=== PATIENT | female | born 1940 | race Caucasian/White ===

== ENCOUNTER 2019-04-19 12:43 | Day surgery (SDC) | payer MEDICARE, BC ==
[~2019-04-19 12:43] MED LIST: Acetaminophen TAB* 325 MG PO PRN
[2019-04-19] MEDS ORDERED: Cyclopentolate 1% OPTH.SOL* 2 ML BTL ONE (13:30)
[2019-04-19] MEDS ORDERED: Tetracaine 0.5% OPTH.SOL 4 ML* 1 DROP BTL ONE (13:30)
[2019-04-19] MEDS ORDERED: Ketorolac 0.5% OPHTH (NF) 0.5 % 5 ML BTL ONE (13:30)
[2019-04-19] MEDS ORDERED: acetaZOLAMIDE TAB* 250 MG ONE (13:30)
[2019-04-19] MEDS ORDERED: Neomycin/Polymy/Dex OPHTH.OIN* 3.5 GM ONE (13:30)
[2019-04-19] MEDS ORDERED: Lidocaine 1% MPF ** 5 ML VIAL ONE (13:30)
[2019-04-19] MEDS ORDERED: Phenylephrine OPHTH SOL 2.5%* 2 ML ONE (13:30)
[2019-04-19] MEDS ORDERED: Povidone Iodine 5% OPTH* 30 ML BTL ONE (13:30)
[2019-04-19] MEDS ORDERED: Tropicamide 1% OPTH.SOL* BTL ONE (13:30)
[2019-04-19] MEDS ORDERED: fentaNYL* 50 MCG/ML 2 ML VIAL (100 MCG VIAL) ONE (13:35)
[2019-04-19] MEDS ORDERED: Midazolam* 1 MG/ML 5 ML VIAL (5 MG) ONE (13:35)
[2019-04-19 15:57] VITALS: BP 151/66
--- NOTE | 2019-04-19 19:55 | OP ---
DATE OF OPERATION: 04/19/19 - [facility] DATE OF : 42 SURGEON: Louis Perkins MD ANESTHESIA: Monitored anesthesia care. PREOPERATIVE DIAGNOSIS: Cataract, right eye. POSTOPERATIVE DIAGNOSIS: Cataract, right eye. OPERATIVE PROCEDURE: Extracapsular cataract extraction of the right eye with intraocular lens implant. IMPLANT: SN60WF 20.5 Diopter lens to the right eye. COMPLICATIONS: None. DESCRIPTION OF PROCEDURE: The patient was given phenylephrine 2.5 % and cyclopentolate 1% eye drops to the operative eye in the preoperative area. The patient was taken to the operating room where a time-out was taken to identify the correct patient, site, and side of surgery. The patient's right eye was prepped and draped in the usual sterile fashion with 5% Betadine. A second time- out was taken to verify the correct patient, side, and site of surgery, as well as the correct lens implant. A lid speculum was placed to the right eye. A 1mm paracentesis blade was used to make a clear corneal incision. Preservative-free 1% lidocaine was injected into the anterior chamber. DisCoVisc was then injected into the anterior chamber. A 2.75 mm keratome blade was used to make a triplanar incision. A cystotome initiated a capsulorrhexis, which was completed with Utrata forceps in a continuous and curvilinear manner. Hydrodissection of the lens was performed with BSS on a cannula. The lens could be spun in a capsular bag. The phacoemulsification handpiece was used with a divide-and- conquer technique to remove the nucleus. The I/A handpiece then removed the residual cortical lens material. DisCoVisc was injected to inflate the capsular bag. The planned SN60WF 20.5 Diopter lens was injected into the capsular bag. The residual DisCoVisc was removed from the eye with the I/A handpiece. The corneal incisions were hydrated and no leaks occurred at physiologic pressure around 20 mmHg per palpation. The lid speculum was removed and drapes were removed. Maxitrol ointment was placed to the surface of the operative eye. An adhesive patch and shield was then placed on the operative eye. The patient was taken to the postoperative area in stable condition. [id number]/[facility] #: [id number] [facility]
== END 2019-04-19 15:53 | disposition home or self-care (01) ==
LOC: OREAST 12:43
PROVIDERS: ATTEND Student in an Organized Health Care Education/Training Program
DX: H25.11 Age-related nuclear cataract, right eye (principal); J45.909 Unspecified asthma, uncomplicated; I10 Essential (primary) hypertension; E78.00 Pure hypercholesterolemia, unspecified; R01.1 Cardiac murmur, unspecified; E03.9 Hypothyroidism, unspecified
CPT/HCPCS: A9270-GY; J2250; J3010; V2632

== ENCOUNTER 2019-04-26 08:14 | Day surgery (SDC) | payer MEDICARE, BC ==
[2019-04-26] MEDS ORDERED: Cyclopentolate 1% OPTH.SOL* 2 ML BTL ONE (09:31)
[2019-04-26] MEDS ORDERED: Lidocaine 1% MPF ** 5 ML VIAL ONE (09:31)
[2019-04-26] MEDS ORDERED: Phenylephrine OPHTH SOL 2.5%* 2 ML ONE (09:31)
[2019-04-26] MEDS ORDERED: Povidone Iodine 5% OPTH* 30 ML BTL ONE (09:31)
[2019-04-26] MEDS ORDERED: acetaZOLAMIDE TAB* 250 MG ONE (09:31)
[2019-04-26] MEDS ORDERED: Neomycin/Polymy/Dex OPHTH.OIN* 3.5 GM ONE (09:32)
[2019-04-26] MEDS ORDERED: Tropicamide 1% OPTH.SOL* BTL ONE (09:32)
[2019-04-26] MEDS ORDERED: Ketorolac 0.5% OPHTH (NF) 0.5 % 5 ML BTL ONE (09:32)
[2019-04-26] MEDS ORDERED: Tetracaine 0.5% OPTH.SOL 4 ML* 1 DROP BTL ONE (09:32)
[2019-04-26] MEDS ORDERED: Midazolam* 1 MG/ML 2 ML VIAL (2 MG) ONE ×2 (09:41→09:45)
[2019-04-26 10:52] VITALS: BP 126/95
--- NOTE | 2019-04-26 11:14 | OP ---
DATE OF OPERATION: 04/26/19 - [facility] DATE OF : 42 SURGEON: Louis Perkins MD ANESTHESIA: Monitored anesthesia care. PREOPERATIVE DIAGNOSIS: Cataract, left eye. POSTOPERATIVE DIAGNOSIS: Cataract, left eye. OPERATIVE PROCEDURE: Extracapsular cataract extraction of the left eye with intraocular lens implant. IMPLANT: SN60WF 20.5 Diopter lens to the left eye. COMPLICATIONS: None. DESCRIPTION OF PROCEDURE: The patient was given phenylephrine 2.5 % and cyclopentolate 1% eye drops to the operative eye in the preoperative area. The patient was taken to the operating room where a time-out was taken to identify the correct patient, site, and side of surgery. The patient's left eye was prepped and draped in the usual sterile fashion with 5% Betadine. A second time- out was taken to verify the correct patient, side, and site of surgery, as well as the correct lens implant. A lid speculum was placed to the left eye. A 1mm paracentesis blade was used to make a clear corneal incision. Preservative-free 1% lidocaine was injected into the anterior chamber. DisCoVisc was then injected into the anterior chamber. A 2.75 mm keratome blade was used to make a triplanar incision. A cystotome initiated a capsulorrhexis, which was completed with Utrata forceps in a continuous and curvilinear manner. Hydrodissection of the lens was performed with BSS on a cannula. The lens could be spun in a capsular bag. The phacoemulsification handpiece was used with a divide-and- conquer technique to remove the nucleus. The I/A handpiece then removed the residual cortical lens material. DisCoVisc was injected to inflate the capsular bag. The planned SN60WF 20.5 diopter lens was injected into the capsular bag. The residual DisCoVisc was removed from the eye with the I/A handpiece. The corneal incisions were hydrated and no leaks occurred at physiologic pressure around 20 mmHg per palpation. The lid speculum was removed and drapes were removed. Maxitrol ointment was placed to the surface of the operative eye. An adhesive patch and shield was then placed on the operative eye. The patient was taken to the postoperative area in stable condition. [id number]/[facility] #: [id number] [facility]
== END 2019-04-26 10:27 | disposition home or self-care (01) ==
LOC: OREAST 08:14
PROVIDERS: ATTEND Student in an Organized Health Care Education/Training Program
DX: H25.12 Age-related nuclear cataract, left eye (principal); J45.909 Unspecified asthma, uncomplicated; E03.9 Hypothyroidism, unspecified; I10 Essential (primary) hypertension; E78.00 Pure hypercholesterolemia, unspecified; K21.9 Gastro-esophageal reflux disease without esophagitis; M19.90 Unspecified osteoarthritis, unspecified site
CPT/HCPCS: A9270-GY; J2250; V2632

== ENCOUNTER 2020-09-18 14:34 | Inpatient (IN) ==
[2020-09-18 16:47] LABS: ABS Eosinophils 0.3 10^3/ul (0-0.6); ABS Monocytes 0.5 10^3/ul (0-0.8); ABS Neutrophils 8.2 10^3/ul (1.5-7.7); Eosinophil % 2.7 %; Hematocrit 34 % (35-47); Hemoglobin 11.3 g/dL (12.0-16.0); Lymphocyte % 9.5 %; Mean Corpuscular HGB Conc 34 g/dL (31-36); Mean Corpuscular Hemoglobin 32 pg (27-31); Mean Corpuscular Volume 94 fL (80-97); Nucleated Red Blood Cells % 0.1; Platelet Count 403 10^3/uL (150-450); Red Blood Count 3.59 10^6 /uL (3.70-4.87); Red Cell Distribution Width 17 % (10-15)
[2020-09-18 16:55] LABS: Troponin I 0.01 ng/mL (<0.03)
[2020-09-18 17:00] LABS: Activated Partial Thrombo Time 28.6 seconds (26.0-38.0); INR 1.47 (0.82-1.09)
[2020-09-18 17:10] LABS: ALT 22 U/L (7-52); AST 24 U/L (13-39); Albumin 3.6 g/dL (3.2-5.2); Albumin/Globulin Ratio 0.8 (1-3); Alkaline Phosphatase 84 U/L (34-104); Anion Gap 14 mmol/L (2-11); Blood Urea Nitrogen 43 mg/dL (6-24); CO2 Carbon Dioxide 17 mmol/L (22-32); Calcium 9.2 mg/dL (8.6-10.3); Chloride 101 mmol/L (101-111); EGFR African American 34.7 (>60); EGFR Non-African American 28.7 (>60); Globulin 4.3 g/dL (2-4); Glucose 82 mg/dL (70-100); Potassium 4.9 mmol/L (3.5-5.0); Sodium 132 mmol/L (135-145); Total Protein 7.9 g/dL (6.4-8.9)
[2020-09-18 17:15] LABS: Magnesium 0.9 mg/dL (1.9-2.7)
[2020-09-18] MEDS ORDERED: Magnesium Sulf 4 GM/100 ML IV 4,000 MG/100 ML BAG IVPB ONE (17:16)
[2020-09-18 17:39] LABS: % Iron Saturation 12 % (15-55); Iron 34 ug/dL (50-212); Total Iron Binding Capacity 277 mcg/dL (250-450); Transferrin 198 mg/dL (203-362); Unsaturated Iron Binding < 262 ug/dL
[2020-09-18 17:49] LABS: Ferritin 165.6 ng/mL (11-307)
[2020-09-18 18:39] LABS: Erythrocyte Sed Rate 64 mm/Hr (0-29)
[2020-09-18] MEDS: Mometasone/Formoter 100/5 MDI INH SCH (19:53)
[2020-09-19] MEDS ORDERED: Lactated Ringers 1000 ml BAG 1,000 ML IV SCH
[2020-09-19] MEDS ORDERED: Enoxaparin 40 MG/0.4 ML SYR SUBCUT SCH (06:00)
[2020-09-19 07:44] LABS: Urine Appearance Clear; Urine Bilirubin Negative (Negative); Urine Blood Negative (Negative); Urine Color Yellow; Urine Glucose Negative (Negative); Urine Ketones Negative (Negative); Urine Nitrite Negative (Negative); Urine Protein Negative (Negative); Urine Specific Gravity 1.013 (1.010-1.030); Urine Urobilinogen Negative (Negative)
[2020-09-19] MEDS: Multivitamins/Minerals TAB PO SCH ×2 (08:10→09:57)
[2020-09-19] MEDS ORDERED: Lidocaine 1% VIAL 10 MG/ML VIAL ONE (08:47)
[2020-09-19] MEDS ORDERED: Flumazenil 0.5 mg/5 ml 0.1 MG/ML 5 ml VIAL ONE (09:02)
[2020-09-19] MEDS ORDERED: Naloxone 0.4 mg VIAL 0.4 mg/ml 1 ml VIAL ONE (09:02)
[2020-09-19] MEDS ORDERED: fentaNYL 100 mcg/2 ml 50 MCG/ML VIAL ONE (09:02)
[2020-09-19] MEDS ORDERED: Midazolam 5 mg/5 ml VIAL 1 mg/ml 5 ml VIAL (5 mg) ONE (09:02)
[2020-09-19 09:07] LABS: ABS Eosinophils 0.5 10^3/ul (0-0.6); ABS Lymphocytes 0.8 10^3/ul (1.0-4.8); ABS Neutrophils 7.1 10^3/ul (1.5-7.7); Corrected Retic Count 1.4 % (0.5-1.5); Hematocrit 29 % (35-47); Hematocrit for Retic CNT 29 % (35-47); Hemoglobin 9.7 g/dL (12.0-16.0); Immature Retic Fraction 0.61; Lymphocyte % 8.5 %; Mean Corpuscular HGB Conc 33 g/dL (31-36); Mean Corpuscular Hemoglobin 31 pg (27-31); Mean Corpuscular Volume 93 fL (80-97); Mean Platelet Volume 7.4 fL (7.4-10.4); Platelet Count 366 10^3/uL (150-450); RBC Retic Count 3.17 10^6/uL (3.70-4.87); Red Blood Count 3.17 10^6 /uL (3.70-4.87); Red Cell Distribution Width 17 % (10-15); White Blood Count 9.3 10^3/uL (3.5-10.8)
[2020-09-19 09:27] LABS: Calcium 8.6 mg/dL (8.6-10.3); EGFR African American 43.6 (>60); EGFR Non-African American 36.1 (>60); Magnesium 1.6 mg/dL (1.9-2.7); Potassium 4.3 mmol/L (3.5-5.0)
[2020-09-19 09:36] LABS: INR 1.34 (0.82-1.09)
[2020-09-19] MEDS: Mometasone/Formoter 100/5 MDI INH SCH ×2 (09:57→20:09)
[2020-09-19] MEDS: Enoxaparin 30 MG/0.3 ML SYR SUBCUT SCH (10:33)
[2020-09-19] MEDS ORDERED: Magnesium Sulfate 2 gm BAG 2 GM/50 ML BAG IVPB ONE (10:36)
[2020-09-19] MEDS ORDERED: NS 0.9% 1000 ml BAG 1,000 ML IV SCH (11:30)
[2020-09-19 11:50] LABS: Hepatitis B Surface Antigen Nonreactive (Nonreactive)
[2020-09-19 12:07] LABS: Hepatitis B Surface Ab Not Immune (Immune); Hepatitis C Antibody Negative (Negative)
[2020-09-20 07:14] LABS: BUN/Creatinine Ratio 25.7 (8-20); Calcium 8.2 mg/dL (8.6-10.3); EGFR African American 64.1 (>60); Magnesium 1.5 mg/dL (1.9-2.7)
[2020-09-20 07:17] LABS: ABS Eosinophils 0.3 10^3/ul (0-0.6); ABS Lymphocytes 0.8 10^3/ul (1.0-4.8); ABS Monocytes 1.2 10^3/ul (0-0.8); ABS Neutrophils 6.9 10^3/ul (1.5-7.7); Eosinophil % 3.3 %; Hematocrit 29 % (35-47); Hemoglobin 9.7 g/dL (12.0-16.0); Mean Corpuscular HGB Conc 34 g/dL (31-36); Mean Corpuscular Hemoglobin 31 pg (27-31); Mean Corpuscular Volume 93 fL (80-97); Mean Platelet Volume 7.3 fL (7.4-10.4); Platelet Count 320 10^3/uL (150-450); Red Blood Count 3.08 10^6 /uL (3.70-4.87); Red Cell Distribution Width 17 % (10-15); White Blood Count 9.2 10^3/uL (3.5-10.8)
[2020-09-20] MEDS ORDERED: Magnesium Sulfate 2 gm BAG 2 GM/50 ML BAG IVPB ONE (07:30)
[2020-09-20] MEDS: Mometasone/Formoter 100/5 MDI INH SCH (07:53)
[2020-09-20] MEDS ORDERED: Magnesium Sulfate IV 3 GM in NS 0.9% 100 ml BAG 100 ML IVPB ONE (09:22)
[2020-09-20] MEDS: Multivitamins/Minerals TAB PO SCH (09:32)
[2020-09-20] MEDS: Enoxaparin 30 MG/0.3 ML SYR SUBCUT SCH (10:47)
[2020-09-20 11:02] LABS: Ceruloplasmin 35.5 mg/dL
[2020-09-20 11:34] VITALS: BP 118/66
[2020-09-20 11:39] LABS: Lactate Dehydrogenase, BF 263 U/L
[2020-09-20 13:07] LABS: Urine Kappa Total Light Chain 5.68 mg/dL (<0.9000); Urine Kappa/Lambda Light Chain 4.54
[2020-09-20 13:17] LABS: DRVVT Screen Ratio 0.81 ratio (<1.20); LAC APTT 27 sec (25 - 37); LAC INR 1.3 (0.9-1.1); Prothrombin Time(LAC) 14.2 sec (9.4 - 12.5)
[2020-09-20 13:23] LABS: Fluid Type, Glucose PERICARDIAL; Glucose, BF 93 mg/dL
[2020-09-20 13:24] LABS: LAC PT Mix 1:1 12.3 sec (9.4 - 12.5); Thrombin Time (Bovine), P 23.4 sec
[2020-09-20 16:29] LABS: Cyclic Citrullinated Peptide 18.3 U
[2020-09-20 16:58] LABS: (sTfR) Soluble Trans Receptor 4.6 mg/L (1.8 - 4.6)
[2020-09-20 17:25] LABS: Albumin 2.6 g/dL (3.4-4.7); Albumin/Globulin Ratio 0.64; Beta 2 Glycoprotein IgG <9.4 U/mL; Gamma Globulin 2.1 g/dL (0.6-1.6); Total Protein(PEP) 6.8 g/dL (6.3 - 7.9)
[2020-09-20 18:05] LABS: Immunoglobulin A 583 mg/dL (61 - 356); Immunoglobulin G 2030 mg/dL (767 - 1590); Immunoglobulin M 129 mg/dL (37 - 286); JO-1 Antibody <0.2 U; RNP Antibody, IgG <0.2 U; Ribosomal Antibody <0.2 U; SS-A/Ro Antibody >8.0 U; SS-B/La Antibody <0.2 U; Sm (Smith) IgG Antibody <0.2 U
[2020-09-20 18:47] LABS: Kappa Free Light Chain 14.5 mg/dL; Lambda Free Light Chain, S 6.73 mg/dL; Phospholipid Ab IgG 38.6 GPL; Phospholipid Ab IgM, S 14.1 MPL
[2020-09-20 21:27] LABS: Mitochondria M2 Antibody <0.1 U
[2020-09-20 22:06] LABS: Complement C3 96 mg/dL (75 - 175)
[2020-09-21 12:42] LABS: Albumin/Globulin Ratio 0.84 %; Protein,Total, Random Urine 23 mg/dL
[2020-09-21 16:29] LABS: Alpha 1 Antitrypsin A1A 162 mg/dL (100 - 190)
[2020-09-22 15:33] LABS: Cytomegalovirus IgG Antibody Negative (Negative)
[2020-09-25 11:10] LABS: IgG Immunoblot Negative (Negative); IgM Immunoblot Negative (Negative)
== END 2020-09-20 15:50 | disposition home or self-care (01) ==
LOC: MEDTELE 14:34 → ED 14:34 → MEDTELE 19:16
PROVIDERS: ADMIT Pediatrics; ATTEND Pediatrics

== ENCOUNTER 2021-08-26 19:08 | Inpatient (IN) ==
[2021-08-27 02:07] LABS: ALT 88 U/L (7-52); AST 114 U/L (13-39); Albumin 3.7 g/dL (3.2-5.2); Albumin/Globulin Ratio 1.1 (1-3); Alkaline Phosphatase 98 U/L (35-149); Blood Urea Nitrogen 80 mg/dL (6-24); CO2 Carbon Dioxide 16 mmol/L (22-32); Calcium 9.1 mg/dL (8.6-10.3); Chloride 102 mmol/L (101-111); Globulin 3.4 g/dL (2-4); Glucose 91 mg/dL (70-100); Sodium 133 mmol/L (135-145); Total Protein 7.1 g/dL (6.4-8.9)
[2021-08-27 02:09] LABS: Anion Gap 15 mmol/L (2-11); Potassium 5.8 mmol/L (3.5-5.0)
[2021-08-27 02:13] LABS: Rapid COVID-19 Molecular Undetected (Undetected)
[2021-08-27 02:26] LABS: ABS Lymphocytes 1.6 10^3/ul (1.0-4.8); ABS Monocytes 1.5 10^3/ul (0-0.8); ABS Neutrophils 12.5 10^3/ul (1.5-7.7); ABS Nucleated RBC 0.6 10^3/ul; Eosinophil % 0.2 %; Hematocrit 27 % (35-47); Hemoglobin 8.7 g/dL (12.0-16.0); Lymphocyte % 10.4 %; Mean Corpuscular HGB Conc 33 g/dL (31-36); Mean Corpuscular Hemoglobin 35 pg (27-31); Mean Corpuscular Volume 107 fL (80-97); Mean Platelet Volume 8.1 fL (7.4-10.4); Nucleated Red Blood Cells % 3.5; Platelet Count 205 10^3/uL (150-450); Red Blood Count 2.49 10^6 /uL (3.70-4.87); Red Cell Distribution Width 17 % (10-15); White Blood Count 15.6 10^3/uL (3.5-10.8)
[2021-08-27 02:29] LABS: Troponin I 0.07 ng/mL (<0.03)
[2021-08-27 04:27] LABS: Corrected Retic Count 2.2 % (0.5-1.5); Hematocrit for Retic CNT 27 % (35-47); Immature Retic Fraction 0.72; RBC Retic Count 2.56 10^6/uL (3.70-4.87)
[2021-08-27 04:51] LABS: LDH 472 U/L (140-271)
[2021-08-27 05:11] LABS: Urine Appearance Cloudy; Urine Bilirubin Negative (Negative); Urine Blood Negative (Negative); Urine Color Yellow; Urine Glucose Negative (Negative); Urine Ketones Negative (Negative); Urine Nitrite Negative (Negative); Urine Protein 1+(30 mg/dL) (Negative); Urine Specific Gravity 1.013 (1.002-1.030); Urine Urobilinogen Negative (Negative)
[2021-08-27 05:15] LABS: Urine Bacteria Absent (Absent); Urine Red Blood Cell Trace(0-2/hpf) (Absent); Urine White Blood Cell 1+(6-10/hpf) (Absent)
[2021-08-27 05:25] LABS: Urine Creatinine Concentration 39.34 mg/dL
[2021-08-27] MEDS ORDERED: Patiromer POWDER 8.4 GM PAK PO SCH (06:00)
[2021-08-27 06:06] LABS: Alcohol, S < 13 mg/dL (<13)
[2021-08-27] MEDS: Heparin 5000 UNITS/ML 1 mL VIAL SUBCUT SCH ×3 (06:34→23:19)
[2021-08-27] MEDS ORDERED: Albuterol HFA INHALER 8 gm MDI INH PRN (06:58)
[2021-08-27 07:09] LABS: Magnesium 1.6 mg/dL (1.9-2.7)
[2021-08-27 07:31] LABS: Troponin I 0.07 ng/mL (<0.03)
[2021-08-27 08:03] LABS: Venous Bicarbonate HCO3 16.8 mmol/L (24-28)
[2021-08-27 08:06] LABS: Folate > 20.00 ng/mL (5.90-24.80)
[2021-08-27 08:07] LABS: Vitamin B12 777 pg/mL (180-914)
[2021-08-27 08:11] LABS: Activated Partial Thrombo Time 61.6 seconds (26.0-38.0); INR 1.45 (0.86-1.15)
[2021-08-27 09:32] LABS: Blood Urea Nitrogen 78 mg/dL (6-24); CO2 Carbon Dioxide 16 mmol/L (22-32); Calcium 8.8 mg/dL (8.6-10.3); Chloride 102 mmol/L (101-111); Glucose 77 mg/dL (70-100); Sodium 132 mmol/L (135-145)
[2021-08-27 09:34] LABS: Anion Gap 14 mmol/L (2-11); Potassium 5.3 mmol/L (3.5-5.0)
[2021-08-27] MEDS: Aspirin EC 81 mg TAB.EC (enteric coated) PO SCH (10:27)
[2021-08-27] MEDS ORDERED: NS 0.9% 1000 ml BAG 1,000 ML IV SCH ×2 (13:30→14:15)
[2021-08-27 16:01] LABS: UR Microalbumin (mg/L) 159.6 mg/L; Urine Creatinine 44.69 mg/dL; Urine Microalbumin/Creatinine 357.1 (<31)
[2021-08-27 18:27] LABS: Creatine Kinase 172 U/L (10-223)
[2021-08-27] MEDS: SODIUM ZIRCONIUM CYCLOSILICATE 10 GM PACKET PO SCH (20:07)
[2021-08-27] MEDS: Mometasone/Formoter 100/5 MDI INH SCH (20:36)
[2021-08-28] MEDS: Heparin 5000 UNITS/ML 1 mL VIAL SUBCUT SCH ×3 (05:55→20:16)
[2021-08-28 07:35] LABS: ABS Eosinophils 0.3 10^3/ul (0-0.6); ABS Lymphocytes 1.7 10^3/ul (1.0-4.8); ABS Monocytes 1.3 10^3/ul (0-0.8); ABS Neutrophils 9.2 10^3/ul (1.5-7.7); ABS Nucleated RBC 0.3 10^3/ul; ALT 111 U/L (7-52); AST 115 U/L (13-39); Albumin 3.3 g/dL (3.2-5.2); Alkaline Phosphatase 100 U/L (35-149); Anion Gap 13 mmol/L (2-11); Blood Urea Nitrogen 86 mg/dL (6-24); CO2 Carbon Dioxide 18 mmol/L (22-32); Calcium 8.6 mg/dL (8.6-10.3); Chloride 101 mmol/L (101-111); Eosinophil % 2.3 %; Globulin 3.3 g/dL (2-4); Glucose 75 mg/dL (70-100); Hematocrit 26 % (35-47); Hemoglobin 8.3 g/dL (12.0-16.0); Lymphocyte % 13.6 %; Magnesium 1.5 mg/dL (1.9-2.7); Mean Corpuscular HGB Conc 32 g/dL (31-36); Mean Corpuscular Hemoglobin 34 pg (27-31); Mean Corpuscular Volume 107 fL (80-97); Mean Platelet Volume 8.1 fL (7.4-10.4); Nucleated Red Blood Cells % 2.1; Platelet Count 198 10^3/uL (150-450); Potassium 4.7 mmol/L (3.5-5.0); Red Blood Count 2.41 10^6 /uL (3.70-4.87); Red Cell Distribution Width 17 % (10-15); Sodium 132 mmol/L (135-145); Total Protein 6.6 g/dL (6.4-8.9); White Blood Count 12.6 10^3/uL (3.5-10.8)
[2021-08-28] MEDS: Mometasone/Formoter 100/5 MDI INH SCH ×2 (08:34→19:28)
[2021-08-28 10:19] LABS: % Iron Saturation 8 % (15-55); Iron 29 ug/dL (50-212); Total Iron Binding Capacity 356 mcg/dL (250-450); Transferrin 254 mg/dL (203-362); Unsaturated Iron Binding < 341 ug/dL
[2021-08-28] MEDS: Aspirin EC 81 mg TAB.EC (enteric coated) PO SCH (10:29)
[2021-08-28] MEDS: SODIUM ZIRCONIUM CYCLOSILICATE 10 GM PACKET PO SCH ×3 (10:37→20:19)
[2021-08-28 10:38] LABS: Ferritin 126.6 ng/mL (11-307)
[2021-08-28 12:09] LABS: Complement C3 75 mg/dL (75 - 175)
[2021-08-29] MEDS ORDERED: Morphine 2 MG/ML SYRINGE IV ONE (03:51)
[2021-08-29 05:09] LABS: Hematocrit 24 % (35-47); Hemoglobin 7.9 g/dL (12.0-16.0); Mean Corpuscular HGB Conc 33 g/dL (31-36); Mean Corpuscular Hemoglobin 34 pg (27-31); Mean Corpuscular Volume 104 fL (80-97); Mean Platelet Volume 8.1 fL (7.4-10.4); Platelet Count 221 10^3/uL (150-450); Red Cell Distribution Width 16 % (10-15); White Blood Count 13.5 10^3/uL (3.5-10.8)
[2021-08-29 05:28] LABS: Albumin 2.9 g/dL (3.2-5.2); Calcium 8.2 mg/dL (8.6-10.3); Direct Bilirubin 0.4 mg/dL (0.03-0.18); Indirect Bilirubin 0.7 mg/dL (0.3-1.0); Magnesium 1.4 mg/dL (1.9-2.7); Potassium 3.6 mmol/L (3.5-5.0); Total Bilirubin 1.1 mg/dL (0.2-1.0); Total Protein 5.9 g/dL (6.4-8.9)
[2021-08-29] MEDS: Heparin 5000 UNITS/ML 1 mL VIAL SUBCUT SCH ×3 (06:01→20:20)
[2021-08-29] MEDS: Mometasone/Formoter 100/5 MDI INH SCH ×2 (07:45→20:09)
[2021-08-29] MEDS: Aspirin EC 81 mg TAB.EC (enteric coated) PO SCH (09:28)
[2021-08-29] MEDS: SODIUM ZIRCONIUM CYCLOSILICATE 10 GM PACKET PO SCH (11:27)
[2021-08-29] MEDS: Saline NASAL DROPS 0.65% BTL BOTH NARES PRN (20:19)
[2021-08-30 04:49] LABS: Hematocrit 24 % (35-47); Hemoglobin 7.8 g/dL (12.0-16.0); Mean Corpuscular HGB Conc 33 g/dL (31-36); Mean Corpuscular Hemoglobin 34 pg (27-31); Mean Corpuscular Volume 104 fL (80-97); Platelet Count 227 10^3/uL (150-450); Red Cell Distribution Width 17 % (10-15); White Blood Count 13.4 10^3/uL (3.5-10.8)
[2021-08-30 05:09] LABS: Albumin/Globulin Ratio 1.1 (1-3); Calcium 7.9 mg/dL (8.6-10.3); Direct Bilirubin 0.5 mg/dL (0.03-0.18); Globulin 2.8 g/dL (2-4); Indirect Bilirubin 0.7 mg/dL (0.3-1.0); Magnesium 1.4 mg/dL (1.9-2.7); Potassium 3.4 mmol/L (3.5-5.0); Total Bilirubin 1.2 mg/dL (0.2-1.0); Total Protein 5.8 g/dL (6.4-8.9)
[2021-08-30] MEDS: Heparin 5000 UNITS/ML 1 mL VIAL SUBCUT SCH ×3 (06:03→20:56)
[2021-08-30] MEDS: Mometasone/Formoter 100/5 MDI INH SCH ×2 (07:40→20:19)
[2021-08-30] MEDS: Aspirin EC 81 mg TAB.EC (enteric coated) PO SCH (08:27)
[2021-08-30] MEDS: Saline NASAL DROPS 0.65% BTL BOTH NARES PRN ×2 (08:34→20:28)
[2021-08-30 10:49] LABS: TSH Ultra Thyroid Stim Horm 9.46 mcIU/mL (0.34-5.60)
[2021-08-31 04:42] LABS: Hematocrit 30 % (35-47); Hemoglobin 10.1 g/dL (12.0-16.0); Mean Corpuscular HGB Conc 33 g/dL (31-36); Mean Corpuscular Hemoglobin 33 pg (27-31); Mean Corpuscular Volume 98 fL (80-97); Mean Platelet Volume 7.5 fL (7.4-10.4); Platelet Count 239 10^3/uL (150-450); Red Blood Count 3.09 10^6 /uL (3.70-4.87); Red Cell Distribution Width 20 % (10-15); White Blood Count 11.9 10^3/uL (3.5-10.8)
[2021-08-31 05:00] LABS: Albumin 2.9 g/dL (3.2-5.2); Albumin/Globulin Ratio 0.9 (1-3); Calcium 7.7 mg/dL (8.6-10.3); Globulin 3.2 g/dL (2-4); Magnesium 1.3 mg/dL (1.9-2.7); Potassium 2.8 mmol/L (3.5-5.0); Total Bilirubin 2.1 mg/dL (0.2-1.0); Total Protein 6.1 g/dL (6.4-8.9)
[2021-08-31] MEDS: Heparin 5000 UNITS/ML 1 mL VIAL SUBCUT SCH ×2 (05:01→13:34)
[2021-08-31] MEDS ORDERED: Potassium Chlor 20 meq TAB.ER PO ONE (06:37)
[2021-08-31] MEDS: Saline NASAL DROPS 0.65% BTL BOTH NARES PRN (07:13)
[2021-08-31] MEDS: Mometasone/Formoter 100/5 MDI INH SCH (07:15)
[2021-08-31] MEDS: Potassium Chlor 20 meq TAB.ER PO SCH ×3 (08:50→13:33)
[2021-08-31] MEDS: Aspirin EC 81 mg TAB.EC (enteric coated) PO SCH (08:50)
[2021-08-31 14:12] VITALS: BP 95/50
== END 2021-08-31 16:15 | disposition home or self-care (01) | DRG 683 ==
LOC: ED 19:08 → EDHOLD 08-27 04:57 → SUATTDRO 08-27 04:57 → EDHOLD 08-27 13:54 → MED 08-27 17:36
PROVIDERS: ADMIT Internal Medicine; ATTEND Internal Medicine

== ENCOUNTER 2021-09-14 13:05 | Inpatient (IN) ==
[2021-09-14] MEDS ORDERED: Cefepime 1 GM in Dextrose 1 GM/50 ML BAG IV ONE (13:30)
[2021-09-14] MEDS ORDERED: Vancomycin 1,000 MG in NS 0.9% 250 ml 250 ML IVPB ONE (13:30)
[2021-09-14] MEDS ORDERED: oxyCODONE/Acetamin 5/325 mg TAB PO ONE ×2 (14:12→20:07)
[2021-09-14 15:35] LABS: Hematocrit 33 % (35-47); Mean Corpuscular HGB Conc 33 g/dL (31-36); Mean Corpuscular Hemoglobin 33 pg (27-31); Mean Corpuscular Volume 99 fL (80-97); Mean Platelet Volume 7.9 fL (7.4-10.4); Platelet Count 356 10^3/uL (150-450); Red Blood Count 3.34 10^6 /uL (3.70-4.87); Red Cell Distribution Width 19 % (10-15); White Blood Count 19.4 10^3/uL (3.5-10.8)
[2021-09-14 15:55] LABS: INR 1.44 (0.86-1.15)
[2021-09-14 15:55] LABS: ALT 37 U/L (7-52); AST 32 U/L (13-39); Albumin 3.2 g/dL (3.2-5.2); Albumin/Globulin Ratio 0.9 (1-3); Alkaline Phosphatase 115 U/L (35-149); Anion Gap 14 mmol/L (2-11); Blood Urea Nitrogen 115 mg/dL (6-24); C Reactive Protein 166.39 mg/L (<8.01); CO2 Carbon Dioxide 23 mmol/L (22-32); Calcium 8.2 mg/dL (8.6-10.3); Chloride 93 mmol/L (101-111); Globulin 3.5 g/dL (2-4); Glucose 87 mg/dL (70-100); Potassium 3.7 mmol/L (3.5-5.0); Sodium 130 mmol/L (135-145); Total Protein 6.7 g/dL (6.4-8.9); eGFR CKD-EPI 25.7 (>60)
[2021-09-14 15:56] LABS: Activated Partial Thrombo Time 26.8 seconds (26.0-38.0)
[2021-09-14 16:14] LABS: ABS Basophils 0.1 10^3/ul (0-0.2); ABS Eosinophils 0.1 10^3/ul (0-0.6); ABS Lymphocytes 0.8 10^3/ul (1.0-4.8); ABS Monocytes 1.7 10^3/ul (0-0.8); ABS Neutrophils 16.7 10^3/ul (1.5-7.7); Eosinophil % 0.6 %; Lymphocyte % 4.3 %
[2021-09-14 16:14] LABS: Troponin I 0.07 ng/mL (<0.03)
[2021-09-14] MEDS ORDERED: Lactated Ringers 1000 ml BAG 1,000 ML IV ONE (16:14)
[2021-09-14] MEDS ORDERED: Ondansetron 4 mg VIAL 2 MG/ML 2 ml VIAL IV ONE ×2 (17:35→23:17)
[2021-09-14] MEDS ORDERED: Ondansetron 4 mg VIAL 2 MG/ML 2 ml VIAL ONE (17:36)
[2021-09-14 19:48] LABS: Rapid COVID-19 Molecular Undetected (Undetected)
[2021-09-14] MEDS ORDERED: Vancomycin 1,500 MG in NS 0.9% 250 ml 250 ML IVPB ONE (22:16)
[2021-09-14] MEDS ORDERED: Vancomycin per Pharmacy 1 EA NOTE FOLLOW UP PRN (23:21)
[2021-09-14] MEDS: Heparin 5000 UNITS/ML 1 mL VIAL SUBCUT SCH (23:39)
[2021-09-15 04:42] LABS: Hematocrit 38 % (35-47); Hemoglobin 12.4 g/dL (12.0-16.0); Mean Corpuscular HGB Conc 32 g/dL (31-36); Mean Corpuscular Hemoglobin 33 pg (27-31); Mean Corpuscular Volume 101 fL (80-97); Mean Platelet Volume 8.4 fL (7.4-10.4); Platelet Count 235 10^3/uL (150-450); Red Blood Count 3.78 10^6 /uL (3.70-4.87); Red Cell Distribution Width 18 % (10-15); White Blood Count 22.8 10^3/uL (3.5-10.8)
[2021-09-15 04:57] LABS: ABS Lymphocytes 0.3 10^3/ul (1.0-4.8); ABS Monocytes 0.9 10^3/ul (0-0.8); ABS Neutrophils 21.5 10^3/ul (1.5-7.7); Eosinophil % 0.2 %; Lymphocyte % 1.4 %
[2021-09-15 05:24] LABS: Troponin I 0.09 ng/mL (<0.03)
[2021-09-15] MEDS: Heparin 5000 UNITS/ML 1 mL VIAL SUBCUT SCH ×3 (06:22→21:38)
[2021-09-15] MEDS ORDERED: Acetaminophen IV 1 GM/100ML 100 ML IV ONE (07:47)
[2021-09-15 07:59] LABS: Urine Osmo 419 mOsm/kg (150-1150)
[2021-09-15 08:44] LABS: Troponin I 0.08 ng/mL (<0.03)
[2021-09-15] MEDS: Aspirin EC 81 mg TAB.EC (enteric coated) PO SCH (08:47)
[2021-09-15] MEDS ORDERED: EZETIMIBE PO SCH (09:00)
[2021-09-15] MEDS ORDERED: SIMVASTAT PO SCH (09:00)
[2021-09-15] MEDS: Mometasone/Formoter 100/5 MDI INH SCH ×2 (09:49→21:14)
[2021-09-15 11:50] LABS: CO2 Carbon Dioxide 18 mmol/L (22-32); Calcium 8.3 mg/dL (8.6-10.3); Chloride 98 mmol/L (101-111)
[2021-09-15 11:55] LABS: Anion Gap 19 mmol/L (2-11); Sodium 135 mmol/L (135-145)
[2021-09-15 11:56] LABS: Blood Urea Nitrogen 96 mg/dL (6-24); C Reactive Protein 216.71 mg/L (<8.01); Glucose 83 mg/dL (70-100); Potassium 3.5 mmol/L (3.5-5.0); eGFR CKD-EPI 30.1 (>60)
[2021-09-15] MEDS: Cefepime 1 GM in Dextrose 1 GM/50 ML BAG IV SCH (13:14)
[2021-09-15] MEDS ORDERED: Cefepime ADVAN 1 GM in NS 0.9% 50 ML 50 ML IVPB SCH (14:00)
[2021-09-15] MEDS ORDERED: Vancomycin Random Level NOTE FOLLOW UP ONE (15:00)
[2021-09-15] MEDS: Collagenase 250 units/gm OINT 1 tube TOPICAL SCH (15:44)
[2021-09-15] MEDS ORDERED: Lactated Ringers 1000 ml BAG 1,000 ML IV SCH (17:00)
[2021-09-15] MEDS ORDERED: Vancomycin 1000 MG in NS 0.9% 250 ML IVPB ONE (17:00)
[2021-09-16] MEDS: Heparin 5000 UNITS/ML 1 mL VIAL SUBCUT SCH ×3 (05:41→21:09)
[2021-09-16 06:33] LABS: ABS Basophils 0.1 10^3/ul (0-0.2); ABS Eosinophils 0.1 10^3/ul (0-0.6); ABS Lymphocytes 0.6 10^3/ul (1.0-4.8); ABS Monocytes 1.2 10^3/ul (0-0.8); ABS Neutrophils 17.6 10^3/ul (1.5-7.7); Eosinophil % 0.7 %; Hematocrit 29 % (35-47); Hemoglobin 9.6 g/dL (12.0-16.0); Lymphocyte % 3.2 %; Mean Corpuscular HGB Conc 33 g/dL (31-36); Mean Corpuscular Hemoglobin 33 pg (27-31); Mean Corpuscular Volume 99 fL (80-97); Mean Platelet Volume 8.3 fL (7.4-10.4); Platelet Count 265 10^3/uL (150-450); Red Blood Count 2.92 10^6 /uL (3.70-4.87); Red Cell Distribution Width 19 % (10-15); White Blood Count 19.6 10^3/uL (3.5-10.8)
[2021-09-16 06:52] LABS: Calcium 8.1 mg/dL (8.6-10.3); Potassium 3.7 mmol/L (3.5-5.0); eGFR CKD-EPI 22.6 (>60)
[2021-09-16 06:55] LABS: Magnesium 0.7 mg/dL (1.9-2.7)
[2021-09-16] MEDS ORDERED: Magnesium Sulf 4 GM/100 ML IV 4,000 MG/100 ML BAG IVPB ONE (07:15)
[2021-09-16] MEDS: Mometasone/Formoter 100/5 MDI INH SCH (07:54)
[2021-09-16] MEDS: Aspirin EC 81 mg TAB.EC (enteric coated) PO SCH (09:05)
[2021-09-16] MEDS: Collagenase 250 units/gm OINT 1 tube TOPICAL SCH (09:07)
[2021-09-16] MEDS ORDERED: Vancomycin Random Level NOTE FOLLOW UP ONE (12:00)
[2021-09-16] MEDS: Cefepime 1 GM in Dextrose 1 GM/50 ML BAG IV SCH (13:07)
[2021-09-16] MEDS ORDERED: NS 0.9% 1000 ml BAG 1,000 ML IV SCH (14:45)
[2021-09-16 15:31] LABS: Hematocrit 31 % (35-47); Hemoglobin 10.3 g/dL (12.0-16.0)
[2021-09-16] MEDS: Clindamycin 600 MG/D5W BAG 600 MG/50 ML BAG IV SCH ×2 (15:32→21:10)
[2021-09-17] MEDS ORDERED: Saline NASAL SPRAY 0.65% BTL BOTH NARES PRN (01:18)
[2021-09-17] MEDS: Mometasone/Formoter 100/5 MDI INH SCH ×3 (01:21→20:34)
[2021-09-17] MEDS: Clindamycin 600 MG/D5W BAG 600 MG/50 ML BAG IV SCH ×4 (02:38→20:41)
[2021-09-17 05:40] LABS: ABS Basophils 0.1 10^3/ul (0-0.2); ABS Eosinophils 0.1 10^3/ul (0-0.6); ABS Lymphocytes 0.7 10^3/ul (1.0-4.8); ABS Monocytes 1.1 10^3/ul (0-0.8); ABS Neutrophils 16.8 10^3/ul (1.5-7.7); Eosinophil % 0.5 %; Hematocrit 28 % (35-47); Hemoglobin 9.4 g/dL (12.0-16.0); Lymphocyte % 3.6 %; Mean Corpuscular HGB Conc 34 g/dL (31-36); Mean Corpuscular Hemoglobin 33 pg (27-31); Mean Corpuscular Volume 100 fL (80-97); Mean Platelet Volume 8.3 fL (7.4-10.4); Platelet Count 223 10^3/uL (150-450); Red Blood Count 2.81 10^6 /uL (3.70-4.87); Red Cell Distribution Width 18 % (10-15); White Blood Count 18.7 10^3/uL (3.5-10.8)
[2021-09-17 05:52] LABS: Potassium 3.6 mmol/L (3.5-5.0); eGFR CKD-EPI 18.8 (>60)
[2021-09-17] MEDS: Heparin 5000 UNITS/ML 1 mL VIAL SUBCUT SCH ×3 (05:52→20:42)
[2021-09-17] MEDS: Aspirin EC 81 mg TAB.EC (enteric coated) PO SCH (09:55)
[2021-09-17] MEDS: Collagenase 250 units/gm OINT 1 tube TOPICAL SCH (09:56)
[2021-09-17] MEDS: Cefepime 1 GM in Dextrose 1 GM/50 ML BAG IV SCH (12:50)
[2021-09-17] MEDS ORDERED: Bumetanide IV 0.25 MG/ML 10 ml VIAL (2.5 mg) SLOW PUSH ONE (13:46)
[2021-09-17] MEDS ORDERED: Potassium Chlor 20 meq TAB.ER PO ONE (14:07)
[2021-09-17 14:26] LABS: Urine Appearance Cloudy; Urine Bilirubin Negative (Negative); Urine Blood Negative (Negative); Urine Color Yellow; Urine Glucose Negative (Negative); Urine Ketones Negative (Negative); Urine Nitrite Negative (Negative); Urine Protein 1+(30 mg/dL) (Negative); Urine Specific Gravity 1.014 (1.002-1.030); Urine Urobilinogen Negative (Negative)
[2021-09-17 14:32] LABS: Urine Bacteria Absent (Absent); Urine Red Blood Cell Trace(0-2/hpf) (Absent); Urine Squamous Epithelial Cell Present (Absent); Urine White Blood Cell 2+(11-20/hpf) (Absent)
[2021-09-18] MEDS: Clindamycin 600 MG/D5W BAG 600 MG/50 ML BAG IV SCH ×4 (02:41→23:01)
[2021-09-18 05:12] LABS: Hematocrit 26 % (35-47); Hemoglobin 8.6 g/dL (12.0-16.0); Mean Corpuscular HGB Conc 33 g/dL (31-36); Mean Corpuscular Hemoglobin 33 pg (27-31); Mean Corpuscular Volume 99 fL (80-97); Mean Platelet Volume 8.3 fL (7.4-10.4); Platelet Count 197 10^3/uL (150-450); Red Blood Count 2.63 10^6 /uL (3.70-4.87); Red Cell Distribution Width 19 % (10-15); White Blood Count 23.4 10^3/uL (3.5-10.8)
[2021-09-18 05:24] LABS: INR 1.46 (0.86-1.15)
[2021-09-18 05:27] LABS: Potassium 4.1 mmol/L (3.5-5.0); eGFR CKD-EPI 17.9 (>60)
[2021-09-18] MEDS: Heparin 5000 UNITS/ML 1 mL VIAL SUBCUT SCH ×3 (05:32→21:04)
[2021-09-18 05:46] LABS: ABS Basophils 0.3 10^3/ul (0-0.2); ABS Lymphocytes 0.5 10^3/ul (1.0-4.8); ABS Neutrophils 21.6 10^3/ul (1.5-7.7); Eosinophil % 0.1 %
[2021-09-18] MEDS: Mometasone/Formoter 100/5 MDI INH SCH ×2 (07:37→19:44)
[2021-09-18 08:05] LABS: Magnesium 1.6 mg/dL (1.9-2.7)
[2021-09-18] MEDS: Collagenase 250 units/gm OINT 1 tube TOPICAL SCH (09:00)
[2021-09-18] MEDS ORDERED: Phytonadione Oral Solution 5 MG/25 ML UDC PO ONE (09:11)
[2021-09-18] MEDS ORDERED: Magnesium Sulfate 2 gm BAG 2 GM/50 ML BAG IVPB ONE (09:17)
[2021-09-18] MEDS ORDERED: Albumin Human 25% 12.5 GM/50 ML BTL IV ONE (09:21)
[2021-09-18] MEDS: Ure-Na 15 GM POWD.PACK PO SCH ×2 (10:42→23:12)
[2021-09-18] MEDS ORDERED: Bumetanide IV 10 MG in Premix IV 0 ML IV SCH (12:00)
[2021-09-18 12:34] LABS: UR Microalbumin (mg/L) 123.3 mg/L; Urine Creatinine 50.83 mg/dL; Urine Microalbumin/Creatinine 242.5 (<31)
[2021-09-18 13:38] LABS: Kappa Free Light Chain 11.4 mg/dL; Lambda Free Light Chain, S 9.95 mg/dL
[2021-09-18 14:09] LABS: Urine Osmo 300 mOsm/kg (150-1150)
[2021-09-18 14:14] LABS: Complement C3 112 mg/dL (75 - 175)
[2021-09-18 15:06] LABS: Folate > 20.00 ng/mL (5.90-24.80)
[2021-09-18 15:07] LABS: Iron < 20 ug/dL (50-212); LDH 340 U/L (140-271); Vitamin B12 833 pg/mL (180-914)
[2021-09-18] MEDS: Cefepime 1 GM in Dextrose 1 GM/50 ML BAG IV SCH (15:40)
[2021-09-18] MEDS: Bumetanide IV 10 MG in Premix IV 0 ML IV SCH ×3 (15:46→20:59)
[2021-09-18 16:05] LABS: Proteinase 3 <0.2 U
[2021-09-18 18:21] LABS: % Iron Saturation 8 % (15-55); Total Iron Binding Capacity 245 mcg/dL (250-450); Transferrin 175 mg/dL (203-362); Unsaturated Iron Binding < 230 ug/dL
[2021-09-19] MEDS: Bumetanide IV 10 MG in Premix IV 0 ML IV SCH ×4 (00:03→06:40)
[2021-09-19] MEDS: Clindamycin 600 MG/D5W BAG 600 MG/50 ML BAG IV SCH ×2 (03:08→10:33)
[2021-09-19 05:29] LABS: Hematocrit 28 % (35-47); Hemoglobin 8.9 g/dL (12.0-16.0); Mean Corpuscular HGB Conc 31 g/dL (31-36); Mean Corpuscular Hemoglobin 32 pg (27-31); Mean Corpuscular Volume 102 fL (80-97); Mean Platelet Volume 9.2 fL (7.4-10.4); Platelet Count 176 10^3/uL (150-450); Red Blood Count 2.76 10^6 /uL (3.70-4.87); Red Cell Distribution Width 19 % (10-15)
[2021-09-19] MEDS: Heparin 5000 UNITS/ML 1 mL VIAL SUBCUT SCH ×3 (05:30→22:05)
[2021-09-19 05:47] LABS: Calcium 8.5 mg/dL (8.6-10.3); Magnesium 2.2 mg/dL (1.9-2.7); Total Bilirubin 1.1 mg/dL (0.2-1.0)
[2021-09-19 05:53] LABS: Albumin/Globulin Ratio 0.9 (1-3); Globulin 3.3 g/dL (2-4); Total Protein 6.3 g/dL (6.4-8.9); eGFR CKD-EPI 17.6 (>60)
[2021-09-19] MEDS: Mometasone/Formoter 100/5 MDI INH SCH ×2 (07:30→19:28)
[2021-09-19 07:34] LABS: INR 1.45 (0.86-1.15)
[2021-09-19 08:08] LABS: Venous Bicarbonate HCO3 16.9 mmol/L (24-28)
[2021-09-19] MEDS ORDERED: Heparin - STEMI 5,000 UNITS/ML 1 ml VIAL IV ONE (09:25)
[2021-09-19 11:53] LABS: C-ANCA Negative (Negative); P-ANCA Negative (Negative)
[2021-09-19] MEDS: Azithromycin 500 mg/250 ml NS 500 MG/250 ML BAG IVPB SCH (12:09)
[2021-09-19] MEDS: fentaNYL 100 mcg/2 ml 50 MCG/ML VIAL IV SLOW PU PRN ×2 (13:20→17:47)
[2021-09-19] MEDS: Ure-Na 15 GM POWD.PACK PO SCH ×3 (13:30→22:52)
[2021-09-19] MEDS: Heparin 1,000 UNIT/ML 10 ml (10,000 UNITS) CATHLAB/DIALYSIS DIALYSIS ONE ×4 (14:15→17:05)
[2021-09-19 14:48] LABS: Calcium 7.4 mg/dL (8.6-10.3); Potassium 3.7 mmol/L (3.5-5.0)
[2021-09-19 14:53] LABS: eGFR CKD-EPI 18.9 (>60)
[2021-09-19 15:02] LABS: Albumin 2.4 g/dL (3.4-4.7); Albumin/Globulin Ratio 0.72; Gamma Globulin 1.3 g/dL (0.6-1.6); Total Protein(PEP) 5.8 g/dL (6.3 - 7.9)
[2021-09-19 16:26] LABS: Hepatitis B Surface Antigen Nonreactive (Nonreactive)
[2021-09-19] MEDS: Cefepime 1 GM in Dextrose 1 GM/50 ML BAG IV SCH (16:28)
[2021-09-19 16:44] LABS: Hepatitis B Surface Ab Not Immune (Immune)
[2021-09-19 18:30] LABS: Direct Bilirubin 0.5 mg/dL (0.03-0.18); Indirect Bilirubin 0.5 mg/dL (0.3-1.0)
[2021-09-19 19:17] LABS: JO-1 Antibody <0.2 U; RNP Antibody, IgG <0.2 U; SS-A/Ro Antibody >8.0 U; SS-B/La Antibody <0.2 U; Scleroderma Ab <0.2 U; Sm (Smith) IgG Antibody <0.2 U
[2021-09-19] MEDS ORDERED: Cefepime 1 GM in Dextrose 1 GM/50 ML BAG IV SCH (21:00)
[2021-09-19] MEDS: Collagenase 250 units/gm OINT 1 tube TOPICAL SCH (22:04)
[2021-09-20 05:28] LABS: Hematocrit 30 % (35-47); Hemoglobin 9.9 g/dL (12.0-16.0); Mean Corpuscular HGB Conc 33 g/dL (31-36); Mean Corpuscular Hemoglobin 32 pg (27-31); Mean Corpuscular Volume 98 fL (80-97); Mean Platelet Volume 8.3 fL (7.4-10.4); Platelet Count 193 10^3/uL (150-450); Red Blood Count 3.07 10^6 /uL (3.70-4.87); Red Cell Distribution Width 19 % (10-15); White Blood Count 39.4 10^3/uL (3.5-10.8)
[2021-09-20] MEDS: Heparin 5000 UNITS/ML 1 mL VIAL SUBCUT SCH ×3 (05:31→23:50)
[2021-09-20 05:36] LABS: Calcium 8.3 mg/dL (8.6-10.3); Chloride 92 mmol/L (101-111); Sodium 125 mmol/L (135-145)
[2021-09-20 05:40] LABS: CO2 Carbon Dioxide 13 mmol/L (22-32)
[2021-09-20 05:41] LABS: Blood Urea Nitrogen 67 mg/dL (6-24); eGFR CKD-EPI 22.6 (>60)
[2021-09-20] MEDS ORDERED: Dextrose 50% VIAL 50 ml IV PRN (05:50)
[2021-09-20] MEDS ORDERED: Dextrose 50% Syringe 50 ml 25 GM/50 ML SYRINGE ONE ×2 (05:51→06:18)
[2021-09-20 06:00] LABS: ABS Lymphocytes 0.5 10^3/ul (1.0-4.8); ABS Monocytes 1.5 10^3/ul (0-0.8); ABS Neutrophils 37.3 10^3/ul (1.5-7.7); ABS Nucleated RBC 0.2 10^3/ul; Eosinophil % 0.1 %; Lymphocyte % 1.2 %; Nucleated Red Blood Cells % 0.4
[2021-09-20] MEDS ORDERED: Dextrose 50% Syringe 50 ml 25 GM/50 ML SYRINGE IV PUSH ONE ×2 (06:00→06:30)
[2021-09-20 06:13] LABS: Anion Gap 20 mmol/L (2-11); Glucose 13 mg/dL (70-100); Potassium 3.9 mmol/L (3.5-5.0)
[2021-09-20] MEDS: Dextrose 50% Syringe 50 ml 25 GM/50 ML SYRINGE IV PUSH PRN (06:23)
[2021-09-20] MEDS ORDERED: DEXTROSE IV ONE (07:00)
[2021-09-20 07:29] LABS: Glucose Confirmatory 157 mg/dL (70-100)
[2021-09-20] MEDS: Mometasone/Formoter 100/5 MDI INH SCH ×2 (08:49→22:18)
[2021-09-20] MEDS ORDERED: NS 0.9% IV ONE (08:55)
[2021-09-20] MEDS ORDERED: Sodium Bicarbonate 8.4% SYR 50 ml SYRINGE IV ONE (08:56)
[2021-09-20] MEDS ORDERED: Meropenem 1 GM PREMIX(*) 1 GM/50 ML BAG IV SCH ×2 (09:00→17:00)
[2021-09-20 09:01] LABS: PCO2 Arterial 29 mmHg (35-45); PO2 Arterial 60 mmHg (80-100)
[2021-09-20 09:27] LABS: ALT 132 U/L (7-52); Alkaline Phosphatase 180 U/L (35-149)
[2021-09-20] MEDS ORDERED: MEROPENEM 500 MG IV SCH (10:00)
[2021-09-20] MEDS: Ure-Na 15 GM POWD.PACK PO SCH (10:39)
[2021-09-20] MEDS: Azithromycin 500 mg/250 ml NS 500 MG/250 ML BAG IVPB SCH (11:28)
[2021-09-20] MEDS ORDERED: methylPREDNISolone 125 mg 2 ML VIAL IV SCH (12:00)
[2021-09-20] MEDS: Collagenase 250 units/gm OINT 1 tube TOPICAL SCH (12:00)
[2021-09-20] MEDS ORDERED: fentaNYL 100 mcg/2 ml 50 MCG/ML VIAL IV SLOW PU ONE (14:32)
[2021-09-20] MEDS ORDERED: fentaNYL 100 mcg/2 ml 50 MCG/ML VIAL ONE (14:33)
[2021-09-20] MEDS: methylPREDNISolone 125 mg 2 ML VIAL IV SCH ×2 (16:17→23:50)
[2021-09-20] MEDS ORDERED: Heparin 1,000 UNIT/ML 10 ml (10,000 UNITS) CATHLAB/DIALYSIS DIALYSIS ONE (17:00)
[2021-09-20] MEDS: fentaNYL 100 mcg/2 ml 50 MCG/ML VIAL IV SLOW PU PRN ×2 (18:27→22:24)
[2021-09-20] MEDS ORDERED: D5NS 0.9% 1000 ml BAG 1,000 ML IV SCH (19:00)
[2021-09-20 19:59] LABS: TSH Ultra Thyroid Stim Horm 2.47 mcIU/mL (0.34-5.60)
[2021-09-20] MEDS ORDERED: Ure-Na 15 GM POWD.PACK PO SCH (21:00)
[2021-09-20] MEDS ORDERED: Lorazepam PYXIS KEY PRN (21:45)
[2021-09-20] MEDS: LORazepam 2 mg VIAL 1 ml IV PUSH PRN (23:32)
[2021-09-21 02:02] LABS: Calcium 8.6 mg/dL (8.6-10.3); Magnesium 2.2 mg/dL (1.9-2.7); Potassium 3.5 mmol/L (3.5-5.0); eGFR CKD-EPI 34.4 (>60)
[2021-09-21] MEDS: Dextrose 50% Syringe 50 ml 25 GM/50 ML SYRINGE IV PUSH PRN ×2 (02:08→09:00)
[2021-09-21] MEDS: fentaNYL 100 mcg/2 ml 50 MCG/ML VIAL IV SLOW PU PRN (03:00)
[2021-09-21] MEDS: Heparin 5000 UNITS/ML 1 mL VIAL SUBCUT SCH (05:50)
[2021-09-21] MEDS: methylPREDNISolone 125 mg 2 ML VIAL IV SCH (05:50)
[2021-09-21 06:17] LABS: Flag, M-protein Isotype Negative (Negative)
[2021-09-21] MEDS: Mometasone/Formoter 100/5 MDI INH SCH (07:46)
[2021-09-21] MEDS ORDERED: D10W 1000 ml BAG 1,000 ML IV SCH (08:00)
[2021-09-21] MEDS: LORazepam 2 mg VIAL 1 ml IV PUSH PRN (08:39)
[2021-09-21] MEDS ORDERED: Dextrose 50% Syringe 50 ml 25 GM/50 ML SYRINGE IV PUSH PRN (09:18)
[2021-09-21] MEDS ORDERED: Norepinephrine 16MCG/ML IVPRE 4,000 MCG/250 ML BAG IV ONE (09:26)
[2021-09-21 09:30] LABS: Hematocrit 28 % (35-47); Mean Corpuscular HGB Conc 32 g/dL (31-36); Mean Corpuscular Hemoglobin 32 pg (27-31); Mean Corpuscular Volume 101 fL (80-97); Mean Platelet Volume 8.9 fL (7.4-10.4); Platelet Count 133 10^3/uL (150-450); Red Cell Distribution Width 19 % (10-15); White Blood Count 32.8 10^3/uL (3.5-10.8)
[2021-09-21] MEDS ORDERED: Sodium Bicarbonate 8.4% SYR 50 ml SYRINGE ONE ×2 (09:40→09:55)
[2021-09-21] MEDS ORDERED: EPINEPHrine SYR 0.1MG/ML 10 ml SYRINGE ONE ×2 (09:40→09:55)
[2021-09-21 09:53] LABS: Albumin 2.8 g/dL (3.2-5.2); Calcium 8.1 mg/dL (8.6-10.3); Direct Bilirubin 1.7 mg/dL (0.03-0.18); Indirect Bilirubin 1.1 mg/dL (0.3-1.0); Magnesium 2.3 mg/dL (1.9-2.7); Potassium 3.7 mmol/L (3.5-5.0); Total Bilirubin 2.8 mg/dL (0.2-1.0)
[2021-09-21 09:55] LABS: ABS Basophils 0.1 10^3/ul (0-0.2); ABS Eosinophils 0.1 10^3/ul (0-0.6); ABS Lymphocytes 0.5 10^3/ul (1.0-4.8); ABS Monocytes 0.4 10^3/ul (0-0.8); ABS Neutrophils 31.7 10^3/ul (1.5-7.7); ABS Nucleated RBC 1.1 10^3/ul; Eosinophil % 0.2 %; Lymphocyte % 1.6 %; Nucleated Red Blood Cells % 3.3
[2021-09-21] MEDS ORDERED: Norepinephrine 16MCG/ML IVPRE (4 MG/250 ML) in NS 0.9% IV ONE (09:55)
[2021-09-21 09:59] LABS: Albumin/Globulin Ratio 1.1 (1-3); Globulin 2.6 g/dL (2-4); Total Protein 5.4 g/dL (6.4-8.9)
[2021-09-21 10:00] LABS: Anisocytosis 1+; Burr Cells 1+; Macrocytosis 1+
[2021-09-21] MEDS ORDERED: Heparin 1,000 UNIT/ML 10 ml (10,000 UNITS) CATHLAB/DIALYSIS DIALYSIS ONE (10:00)
[2021-09-21 10:32] LABS: INR 4.91 (0.86-1.15)
[2021-09-21 12:09] VITALS: BP 90/20
[2021-09-21 12:31] LABS: Cryoglobulin Negative %ppt (Negative)
[2021-09-21 14:14] LABS: Insulin 3.7 mcIU/mL (2.0-16.0)
[2021-09-21 16:25] LABS: Myeloperoxidase Antibody <0.2 U
[2021-09-21 17:15] LABS: Hepatitis C Antibody Negative (Negative)
[2021-09-21 21:15] LABS: Adenovirus Undetected (Undetected); Bordetella parapertussis Undetected (Undetected); Bordetella pertussis Undetected (Undetected); Chlamydophila pneumoniae Undetected (Undetected); Coronavirus 229E Undetected (Undetected); Coronavirus HKU1 Undetected (Undetected); Coronavirus NL63 Undetected (Undetected); Coronavirus OC43 Undetected (Undetected); Human Metapneumovirus Undetected (Undetected); Human Rhinovirus/Enterovirus Undetected (Undetected); Influenza A Undetected (Undetected); Influenza B Undetected (Undetected); Mycoplasmoides pneumoniae Undetected (Undetected); Parainfluenza Virus 1 Undetected (Undetected); Parainfluenza Virus 2 Undetected (Undetected); Parainfluenza Virus 3 Undetected (Undetected); Parainfluenza Virus 4 Undetected (Undetected); Respiratory Syncytial Virus Undetected (Undetected); Specimen Source NASOPHARYNGEAL SWAB
== END 2021-09-21 10:05 | disposition expired | DRG 592 ==
LOC: ED 13:05 → SUATTDRO 21:58 → EDHOLD 22:27 → MED 09-15 02:58 → ICU 09-20 10:15
PROVIDERS: ADMIT Internal Medicine; ATTEND Internal Medicine